=== PATIENT | male | born 1995 | race Caucasian/White ===

== ENCOUNTER 2017-03-16 20:48 | Emergency (ER) | payer SELFPAY ==
[~2017-03-16] VITALS: Ht 170.2 cm; Wt 60.8 kg
[2017-03-16 21:36] VITALS: BP 126/69; PULSE 68; RESP 16; TEMP 99.9; O2SAT 99
--- NOTE | 2017-03-16 22:32 | PD ---
HPI Chief Complaint: Musculoskeletal Complaint Time Seen by Provider: 22:32 Travel History International Travel<30 days: No Contact w/Intl Traveler<30days: No Traveled to known affect area: No History of Present Illness HPI 21-year-old male came to the emergency room with history of punching a wall followed by pain and swelling that he noticed on the side of the hand. This was his right hand and patient is right-handed. He says he tried to straighten it thinking that it might be dislocated. But when it did not get corrected he decided to come to the emergency room. Patient has been icing the area. Is otherwise a healthy person. No open injuries of the hand. [facility] Past Medical History Narrative Medical List of his past medical, surgical, social and family history is reviewed from the nursing note. ?: Not Social History Tobacco Use: Yes Allergies-Medications (Allergen,Severity, Reaction): Coded Allergies: No Known Allergies (Unverified , 03/16/17) Comments No known drug allergies per Reported Meds & Prescriptions Reported Meds & Active Scripts Active No Active Prescriptions or Reported Medications Narrative Medication List of his home medications reviewed from the nursing note Review of Systems Except as stated in HPI: all other systems reviewed are Neg Musculoskeletal: Positive: Pain Physical Exam Narrative GENERAL: Awake, alert, mildest SKIN: Focused skin assessment warm/dry. HEAD: Atraumatic. Normocephalic. EYES: Pupils equal and round. No scleral icterus. No injection or drainage. ENT: No nasal bleeding or discharge. Mucous membranes pink and moist. NECK: Trachea midline. No JVD. CARDIOVASCULAR: Regular rate and rhythm. No murmur appreciated. RESPIRATORY: No accessory muscle use. Clear to auscultation. Breath sounds equal bilaterally. GASTROINTESTINAL: Abdomen soft, non-tender, nondistended. Hepatic and splenic margins not palpable. MUSCULOSKELETAL: There is a swelling and slight deformity of the right fifth metatarsal head. No clubbing. No cyanosis. No edema. Ganglion cyst on the right hand as well. NEUROLOGICAL: Awake and alert. No obvious cranial nerve deficits. Motor grossly within normal limits. Normal speech. PSYCHIATRIC: Appropriate mood and affect; insight and judgment normal. Data Data Last Documented VS Vital Signs Date Time Temp Pulse Resp B/P (MAP) Pulse Ox O2 Delivery O2 Flow Rate FiO2 03/17/17 00:00 03/16/17 23:20 69 18 100 Room Air 03/16/17 21:36 99.9 Orders Orders Hand, Complete (Eki5efx) (03/16/17 ) Ibuprofen (Motrin) (03/16/17 22:45) Support Splint (03/16/17 22:53) Ed Discharge Order (03/16/17 23:13) Fiberglass Splint Forearm Adul (03/17/17 ) MDM Medical Decision Making Medical Screen Exam Complete: Yes Emergency Medical Condition: Yes Medical Record Reviewed: Yes Differential Diagnosis Contusion, boxer's fracture Narrative Course 10:58 PM the x-ray shows comminuted fracture of the metatarsal head. Patient will have ulnar gutter put on and will follow up with hand surgeon. Procedures EKG Prior to Arrival: No Diagnosis Primary Impression: Fracture of fifth metacarpal bone of right hand Qualified Codes: S62.336A - Displaced fracture of neck of fifth metacarpal bone, right hand, initial encounter for closed fracture Referrals: Amy Tracy MD 2 days Departure Forms: Tests/Procedures, Work Release Enter return to work date: Mar 21, 2017 Additional Instructions: Please follow-up with the hand surgeon who is name and number been provided to you on this discharge instructions. Keep the splint clean and dry. Keep the hand elevated above the heart level to minimize swelling. Apply ice pack. Med/Other Pt SpecificInfo: No Change to Meds Scripts No Active Prescriptions or Reported Meds Disposition: 01 DISCHARGE HOME Condition: Stable Anamaria Murry MD Mar 16, 2017 22:32
[2017-03-16] MEDS ORDERED: IBUPROFEN 600 MG TAB PO ONE (22:45)
--- NOTE | 2017-03-16 23:09 | RADRPT ---
EXAM DATE/TIME: 03/16/2017 22:38 [place] COMPARISON: No previous studies available for comparison. INDICATIONS : Patient states he punched a wall tonight. MEDICAL HISTORY : None. SURGICAL HISTORY : None. ENCOUNTER: Initial ACUITY: 1 day PAIN SCORE: 0/10 LOCATION: Right 5th digit. FINDINGS: There is soft tissue swelling along the lateral aspect of the hand and a fracture through the neck of the fifth metacarpal with slight volar angulation. CONCLUSION: Fifth metacarpal fracture. Barrington Blake MD on March 16, 2017 at 23:06 Board Certified Radiologist. This report was verified electronically.
[2017-03-16 23:20] VITALS: BP 127/76; PULSE 69; RESP 18; O2SAT 100
== END 2017-03-17 00:11 | disposition home or self-care (01) ==
LOC: PHED 20:48 → PHEFT 03-17 00:11
DX: S62.336A Displaced fracture of neck of fifth metacarpal bone, right hand, initial encounter for closed fracture (principal); W22.09XA Striking against other stationary object, initial encounter
CPT/HCPCS: 29125; 73130